=== PATIENT | female | born 1980 | race Hispanic/Latino ===

== ENCOUNTER → 2019-06-14 | Outpatient (CLI) | payer BC ==
--- NOTE | 2019-06-14 13:18 | Diagnostic Imaging Report ---
EXAM: Right upper quadrant abdominal ultrasound INDICATION: Elevated liver enzymes COMPARISON: None. TECHNIQUE: Transverse and longitudinal images of the right upper quadrant abdomen were obtained FINDINGS: Liver: Size: 14.7 cm in the right midclavicular line, normal Appearance: Mildly increased echogenicity, smooth contour Mass: No focal masses Gallbladder: No gallbladder distension, pericholecystic fluid, wall thickening, stone, or reported sonographic Haque's sign. Gallbladder wall measures 3 mm. Bile Ducts: Intrahepatic Ducts: No dilatation Extrahepatic Ducts: Common bile duct measures 3 mm Pancreas: Visualized portions of the pancreatic head, neck and proximal body are normal. Kidney: The right kidney measures 13.2 cm without evidence of hydronephrosis or stone. Vessels: Aorta: Visualized portions are normal Inferior Vena Cava: Visualized portions are normal Main Portal Vein: 0.8 cm, normal size with hepatopetal flow. Free Fluid: No ascites or pleural effusion IMPRESSION: No sonographic evidence of cholelithiasis or cholecystitis. Mild diffuse hepatic steatosis. Signed by: Leander Sanchez MD on 06/14/2019 1:14 PM
== END ==
LOC: US 12:07
PROVIDERS: ATTEND Family Medicine
DX: R74.8 Abnormal levels of other serum enzymes (principal); R94.5 Abnormal results of liver function studies
CPT/HCPCS: 76705

== ENCOUNTER → 2020-02-26 | Outpatient (CLI) | payer BC ==
--- NOTE | 2020-02-26 14:33 | Diagnostic Imaging Report ---
EXAMINATION: CHEST 2 VIEWS INDICATION: Wheezing COMPARISON: None FINDINGS: LINES/TUBES:None LUNGS:The lungs are well-inflated. No focal consolidation or pulmonary edema. PLEURA:No pleural effusion or pneumothorax. MEDIASTINUM:The cardiomediastinal silhouette appears normal in size and shape. BONES/SOFT TISSUES:No acute osseous injury. ABDOMEN:No free air under the diaphragm. IMPRESSION: No focal pneumonia or pulmonary edema. Signed by: Leander Sanchez MD on 02/26/2020 2:29 PM
== END ==
LOC: RAD 13:40
PROVIDERS: ATTEND Family Medicine
DX: R06.2 Wheezing (principal)
CPT/HCPCS: 71046